=== PATIENT | male | born 1990 | race Two or more races ===

== ENCOUNTER 2018-12-26 16:19 | Emergency (ER) | payer OTHER ==
[~2018-12-26] VITALS: Ht 190.5 cm; Wt 99.8 kg
== END 2018-12-26 20:12 | disposition home or self-care (01) ==
LOC: ER 16:19
DX: S30.22XA Contusion of scrotum and testes, initial encounter (principal); W22.8XXA Striking against or struck by other objects, initial encounter; Y93.89 Activity, other specified; Y92.89 Other specified places as the place of occurrence of the external cause; Y99.8 Other external cause status